=== PATIENT | female | born 1935 | race Two or more races ===

== ENCOUNTER 2017-10-22 08:50 | Outpatient (CLI) | payer OTHER ==
[~2017-10-22 08:50] MED LIST: AMLODIPINE BESY10 MG PO; AMLODIPINE-OLM1 EAC1 PO; CELEBREX100 MG PO; LANTUS100 U/ML SQ; LOTREL 10-20 MG1 CAP; LYRICA50 MG PO; RECTICARE30 GM TP; TRAM1TAB98 PO
== END 2017-10-22 09:14 | disposition home or self-care (01) ==
LOC: TOM 08:50
DX: M25.551 Pain in right hip (principal)

== ENCOUNTER 2017-11-06 07:05 | Outpatient (CLI) | payer OTHER | END 2017-11-06 07:11 | disposition home or self-care (01) | LOC: RAD 07:05 | DX: M25.521 Pain in right elbow (principal); M79.641 Pain in right hand ==

== ENCOUNTER 2018-02-03 09:09 | Outpatient (CLI) | payer OTHER | END 2018-02-03 09:13 | disposition home or self-care (01) | LOC: RAD 09:09 | DX: M79.641 Pain in right hand (principal); M25.551 Pain in right hip; M25.552 Pain in left hip ==

== ENCOUNTER 2018-03-10 08:01 | Outpatient (CLI) | payer OTHER | END 2018-03-10 08:04 | disposition home or self-care (01) | LOC: MAMO-SONO 08:01 | DX: Z12.31 Encounter for screening mammogram for malignant neoplasm of breast (principal); Z87.898 Personal history of other specified conditions; N60.01 Solitary cyst of right breast ==

== ENCOUNTER 2020-07-25 17:18 | Emergency (ER) | payer OTHER ==
[~2020-07-25] VITALS: Ht 160 cm; Wt 64.4 kg
== END 2020-07-25 23:51 | disposition home or self-care (01) ==
LOC: ER 17:18 → EDBD 17:37 → ER 23:51
DX: C78.5 Secondary malignant neoplasm of large intestine and rectum (principal); K62.5 Hemorrhage of anus and rectum; K62.89 Other specified diseases of anus and rectum; R10.84 Generalized abdominal pain; Z03.818 Encounter for observation for suspected exposure to other biological agents ruled out

== ENCOUNTER 2020-08-02 10:40 | Inpatient (IN) | payer OTHER ==
[~2020-08-02] VITALS: Ht 157.5 cm; Wt 63.5 kg
[2020-08-15] MEDS ORDERED: LEVOFLOXACIN500 MG PO (08:26)
[2020-08-15] MEDS ORDERED: JUVEN PACKET1 EAC1 PO (08:26)
== END 2020-08-15 11:47 | disposition home or self-care (01) | DRG 330 ==
LOC: SURH 08-08 08:45 → SURG 08-09 09:22 → O/R 08-09 09:22 → SURH 08-09 10:00 → SURG 08-09 18:56
PROVIDERS: ADMIT Surgery; ATTEND Surgery
PROC: 0DTN4ZZ Resection of Sigmoid Colon, Percutaneous Endoscopic Approach (ICD-10-PCS; 2020-08-09)
PROC: 0DTQ4ZZ Resection of Anus, Percutaneous Endoscopic Approach (ICD-10-PCS; 2020-08-09)
PROC: 07TB4ZZ Resection of Mesenteric Lymphatic, Percutaneous Endoscopic Approach (ICD-10-PCS; 2020-08-09)
PROC: 0D1N4Z4 Bypass Sigmoid Colon to Cutaneous, Percutaneous Endoscopic Approach (ICD-10-PCS; 2020-08-09)
PROC: 0DTP4ZZ Resection of Rectum, Percutaneous Endoscopic Approach (ICD-10-PCS; principal; 2020-08-09 10:00)
DX: C21.1 Malignant neoplasm of anal canal (principal); C20 Malignant neoplasm of rectum; Z20.828 Contact with and (suspected) exposure to other viral communicable diseases; Z93.3 Colostomy status; R50.82 Postprocedural fever

== ENCOUNTER 2020-09-06 20:32 | Emergency (ER) | payer OTHER ==
[~2020-09-06] VITALS: Ht 162.6 cm; Wt 54.4 kg
[~2020-09-06 20:32] MED LIST changes: +JUVEN PACKET1 EAC1 PO; +LEVOFLOXACIN500 MG PO
[2020-09-06] MEDS ORDERED: LOSARTAN POTASS25 MG PO (20:43)
[2020-09-06] MEDS ORDERED: SEMGLEE100 UNIT/1 SUBCUTANEO (20:43)
[2020-09-06] MEDS ORDERED: PEPCID AC20 MG PO (23:49)
[2020-09-06] MEDS ORDERED: CELEBREX100 MG PO (23:49)
== END 2020-09-07 04:11 ==
LOC: ER 20:32
DX: R55 Syncope and collapse (principal); E86.0 Dehydration; Z20.828 Contact with and (suspected) exposure to other viral communicable diseases

== ENCOUNTER 2020-09-19 17:52 | Inpatient (IN) | payer OTHER ==
[~2020-09-19] VITALS: Ht 160 cm; Wt 52.2 kg
[~2020-09-19 17:52] MED LIST changes: +LOSARTAN POTASS25 MG PO; +PEPCID AC20 MG PO; +SEMGLEE100 UNIT/1 SUBCUTANEO
--- NOTE | 2020-09-19 18:02 | NUR ---
SE LLAMA A LA PTE SE ENCUENTRA AFUERA EL FAMILIAR LA VA A BUSCAR.
[2020-09-19] MEDS ORDERED: LOTREL 10-40 M1 EACH (18:12)
--- NOTE | 2020-09-19 18:13 | NUR ---
SE RECIBE PTE ALERTA Y ORIENTADA X3,REFERIDA POR LA DRA.MARLA FONTENOT ,PARA ADMISION REFIERE TENER DOLOR EN EL ANO,TODD DR.HERNANDEZ REYES.
[2020-09-26] MEDS ORDERED: BACTRIM DS TAB1 EACH PO (08:07)
[2020-09-26] MEDS ORDERED: INTESTINEX680 M1 PO (08:07)
== END 2020-09-26 09:34 | disposition home or self-care (01) | DRG 920 ==
LOC: ER 17:52 → SURH 20:59
PROVIDERS: ADMIT Surgery; ATTEND Surgery
PROC: 2W17X6Z Compression of Left Inguinal Region using Pressure Dressing (ICD-10-PCS; principal; 2020-09-20)
DX: T81.31XA Disruption of external operation (surgical) wound, not elsewhere classified, initial encounter (principal); C21.1 Malignant neoplasm of anal canal; Y83.8 Other surgical procedures as the cause of abnormal reaction of the patient, or of later complication, without mention of misadventure at the time of the procedure; Z20.822 Contact with and (suspected) exposure to COVID-19; D64.9 Anemia, unspecified; Z93.3 Colostomy status; I10 Essential (primary) hypertension; B95.62 Methicillin resistant Staphylococcus aureus infection as the cause of diseases classified elsewhere

== ENCOUNTER 2021-04-27 12:44 | Outpatient (CLI) | payer OTHER ==
[~2021-04-27 12:44] MED LIST changes: +BACTRIM DS TAB1 EACH PO; +INTESTINEX680 M1 PO; +LOTREL 10-40 M1 EACH
== END 2021-04-27 12:51 | disposition home or self-care (01) ==
LOC: RAD 12:44
PROVIDERS: ATTEND Internal Medicine
DX: M25.561 Pain in right knee (principal); I10 Essential (primary) hypertension; N99.528 Other complication of incontinent external stoma of urinary tract; C21.8 Malignant neoplasm of overlapping sites of rectum, anus and anal canal; E74.89 Other specified disorders of carbohydrate metabolism; F32.89 Other specified depressive episodes; N85.8 Other specified noninflammatory disorders of uterus; Z68.23 Body mass index [BMI] 23.0-23.9, adult; Z79.84 Long term (current) use of oral hypoglycemic drugs; I11.9 Hypertensive heart disease without heart failure

== ENCOUNTER 2021-08-11 12:42 | Inpatient (IN) | payer OTHER ==
[~2021-08-11] VITALS: Ht 160 cm; Wt 54.4 kg
[2021-08-11] MEDS ORDERED: DITROPAN XL10 MG (12:58)
[2021-08-11] MEDS ORDERED: LEVO-T25 MCG (12:59)
[2021-08-17] MEDS ORDERED: MIRALAX17 GM PO (07:49)
[2021-08-17] MEDS ORDERED: LOSARTAN POTASS25 MG PO (07:51)
[2021-08-17] MEDS ORDERED: LOTREL 10-40 M1 EACH PO (07:51)
[2021-08-17] MEDS ORDERED: LEVO-T25 MCG PO (07:52)
== END 2021-08-17 14:59 | disposition home or self-care (01) | DRG 390 ==
LOC: ER 12:42 → SURH 08-12 08:23
PROVIDERS: ADMIT Surgery; ATTEND Surgery
PROC: BW21YZZ Computerized Tomography (CT Scan) of Abdomen and Pelvis using Other Contrast (ICD-10-PCS; principal; 2021-08-12)
PROC: 02HV33Z Insertion of Infusion Device into Superior Vena Cava, Percutaneous Approach (ICD-10-PCS; 2021-08-13)
DX: K56.699 Other intestinal obstruction unspecified as to partial versus complete obstruction (principal); E86.0 Dehydration; E87.8 Other disorders of electrolyte and fluid balance, not elsewhere classified; I10 Essential (primary) hypertension; Z93.3 Colostomy status; Z20.822 Contact with and (suspected) exposure to COVID-19

== ENCOUNTER 2021-08-28 11:22 | Emergency (ER) | payer OTHER ==
[~2021-08-28] VITALS: Ht 162.6 cm; Wt 54.4 kg
[~2021-08-28 11:22] MED LIST changes: +DITROPAN XL10 MG; +LEVO-T25 MCG; +LEVO-T25 MCG PO; +LOTREL 10-40 M1 EACH PO; +MIRALAX17 GM PO
[2021-08-28] MEDS ORDERED: COZAAR25 MG PO (11:50)
== END 2021-08-28 15:50 | disposition home or self-care (01) ==
LOC: ER 11:22
DX: K58.8 Other irritable bowel syndrome (principal); R10.11 Right upper quadrant pain

== ENCOUNTER 2021-09-02 12:33 | Inpatient (IN) | payer OTHER ==
[~2021-09-02] VITALS: Ht 38.1 cm; Wt 68.0 kg
[~2021-09-02 12:33] MED LIST changes: +COZAAR25 MG PO
[2021-09-03] MEDS ORDERED: OXYBUTYNIN CHLO10 MG (10:08)
[2021-09-03] MEDS ORDERED: LUMIGAN2.5 M1 (10:08)
[2021-09-03] MEDS ORDERED: OMEPRAZOLE40 MG (10:08)
[2021-09-03] MEDS ORDERED: DICLOFENAC POTA50 MG (10:08)
[2021-09-15] MEDS ORDERED: SUBLIMAZE50 MCG/1 M IJ (10:11)
== END 2021-09-15 14:23 | disposition home or self-care (01) | DRG 389 ==
LOC: ER 12:33 → SURH 09-03 07:42 → SURG 09-03 13:26
PROVIDERS: ADMIT Surgery; ATTEND Surgery
PROC: BW2110Z Computerized Tomography (CT Scan) of Abdomen and Pelvis using Low Osmolar Contrast, Unenhanced and Enhanced (ICD-10-PCS; 2021-09-02)
PROC: 0DH67UZ Insertion of Feeding Device into Stomach, Via Natural or Artificial Opening (ICD-10-PCS; 2021-09-03)
PROC: 0DJ08ZZ Inspection of Upper Intestinal Tract, Via Natural or Artificial Opening Endoscopic (ICD-10-PCS; principal; 2021-09-04)
PROC: 02HV33Z Insertion of Infusion Device into Superior Vena Cava, Percutaneous Approach (ICD-10-PCS; 2021-09-04)
PROC: BW2110Z Computerized Tomography (CT Scan) of Abdomen and Pelvis using Low Osmolar Contrast, Unenhanced and Enhanced (ICD-10-PCS; 2021-09-07)
PROC: BW2510Z Computerized Tomography (CT Scan) of Chest, Abdomen and Pelvis using Low Osmolar Contrast, Unenhanced and Enhanced (ICD-10-PCS; 2021-09-07)
PROC: 30233N1 Transfusion of Nonautologous Red Blood Cells into Peripheral Vein, Percutaneous Approach (ICD-10-PCS; 2021-09-09)
DX: K56.600 Partial intestinal obstruction, unspecified as to cause (principal); E46 Unspecified protein-calorie malnutrition; C21.1 Malignant neoplasm of anal canal; K58.9 Irritable bowel syndrome, unspecified; E11.65 Type 2 diabetes mellitus with hyperglycemia; E03.9 Hypothyroidism, unspecified; R53.81 Other malaise; I10 Essential (primary) hypertension; D64.9 Anemia, unspecified; Z93.3 Colostomy status; E86.0 Dehydration